=== PATIENT | female | born 1955 | race Hispanic/Latino ===

== ENCOUNTER 2020-08-11 14:07 | Outpatient (CLI) | payer BC ==
--- NOTE | 2020-08-12 09:20 | Ultrasound Report ---
RIGHT DIGITAL DIAGNOSTIC MAMMOGRAM WITH CAD CONVENTIONAL, 08/11/2020 RIGHT LIMITED BREAST ULTRASOUND CLINICAL INFORMATION / INDICATION: Patient presents as a callback from screening mammogram for furth er evaluation of a new nodular density in the right breast. TECHNIQUE: Digital right mammographic imaging was performed. Spot compression views were obtained. Li mited ultrasound was performed. This examination was interpreted with the benefit of Computer-Aided D etection (CAD) analysis. COMPARISON: Prior mammogram 12/30/2019 FINDINGS: Breast Density: The breasts are heterogeneously dense, which may obscure small masses. MAMMOGRAPHIC FINDINGS: Spot compression views reveal a persistent 9 mm nodular density in the 8 to 9: 00 position of the right breast, middle depth. Additional benign-appearing nodular densities and biop sy clips in the right breast are unchanged. ULTRASOUND FINDINGS: Targeted ultrasound evaluation was performed of the area of interest. Targeted ultrasound of the 8 to 9:00 position of the right breast reveals multiple benign cysts/areas of britt gn fibrocystic change. The largest cyst is located in the 8:00 position located 7 cm from the nipple measuring up to 8mm, which likely accounts for the mammographic finding. No suspicious sonographic ab normality identified. IMPRESSION: 1. Multiple benign cysts/areas of benign fibrocystic change are seen in the right breast, one of whic h accounts for the mammographic finding. No suspicious mammographic or sonographic abnormality identi fied. Follow up recommendation: Back to schedule. BI-RADS Category 2: Benign. A "normal" or negative report should not discourage follow up or biopsy of a clinically significant f inding. A written summary of these findings will be mailed to the patient. The patient will be entered into a mammography reporting system which will generate a reminder letter for the patient's next appointmen t at the appropriate interval. According to the [employer], yearly mammograms are recommended starting at age 40 and continuing as long as a woman is in good health. Breast MRI is recommended for women with an jet roximately 20-25% or greater lifetime risk of breast cancer, including women with a strong family his tory of breast or ovarian cancer and women who have been treated for Hodgkin's disease. Signer Name: Fely Hudson MD Signed: 08/12/2020 9:16 AM Workstation Name: [id number]
== END 2020-08-11 14:08 | disposition home or self-care (01) ==
LOC: SPVWC 14:07
PROVIDERS: ATTEND Surgery
DX: N63.41 Unspecified lump in right breast, subareolar (principal); Z85.3 Personal history of malignant neoplasm of breast